=== PATIENT | female | born 1965 | race African-American/Black ===

== ENCOUNTER 2016-10-20 07:44 | Emergency (ER) | payer OTHER, BC ==
[2016-10-20 07:57] VITALS: BP 126/85; PULSE 72; TEMP 98.6; BMI 31.1
--- NOTE | 2016-10-20 08:46 | PDOC ---
History of Present Illness - General Chief Complaint: Pain, Acute Stated Complaint: LT KNEE PAIN Time Seen by Provider: 10/20/16 08:32 History Source: Patient Exam Limitations: No Limitations - History of Present Illness Initial Comments: 10/20/16 08:43 50 yr female states at work this morning a box fell off a pallet onto her left knee and thigh. Pt is ambulatory no acute distress, c/o left knee pain. Occurred: reports: this morning (630am) Severity: Yes: mild Lower Extremity Pain Location: left: knee Method of Injury: Yes: direct blow Modifying Factors: improves with: None Lower Ext. Injury Location - Specific Injury Location Knees: left normal inspection, left soft tissue tenderness Past History - Past Medical History Allergies/Adverse Reactions: Allergies Allergy/AdvReac Type Severity Reaction Status Date / Time No Known Allergies Allergy Verified 10/20/16 07:52 Other medical history: Denies - Surgical History Abdominal Surgery: Yes (Gastric Sleeve) - Immunization History Immunization Up to Date: Yes - Psycho/Social/Smoking Cessation Hx Anxiety: No Suicidal Ideation: No Smoking History: Never smoked Have you smoked in the past 12 months: No Information on smoking cessation initiated: No Hx Alcohol Use: No Drug/Substance Use Hx: No Substance Use Type: None Review of Systems - Review of Systems Able to Perform ROS?: Yes Is the patient limited Divehi proficient: No Constitutional: No: Symptoms Reported HEENTM: No: Symptoms Reported Respiratory: No: Symptoms reported Cardiac (ROS): No: Symptoms Reported ABD/GI: No: Symptoms Reported : No: Symptoms Reported Musculoskeletal: Yes: Symptoms Reported, See HPI *Physical Exam - Vital Signs Last Vital Signs Temp Pulse Resp BP Pulse Ox 98.6 F 72 16 126/85 100 10/20/16 07:53 10/20/16 07:53 10/20/16 07:53 10/20/16 07:53 10/20/16 07:53 - Physical Exam General Appearance: Yes: Nourished, Appropriately Dressed HEENT: positive: EOMI, MINA Musculoskeletal: positive: Normal Inspection Extremity: positive: Normal Capillary Refill, Normal Inspection, Normal Range of Motion, Tender (dostal femur at proximal patella, nv intact FROM ) Integumentary: positive: Normal Color, Dry, Warm Neurologic: positive: Fully Oriented, Alert, Normal Mood/Affect, Normal Response , Motor Strength 5/5 ED Treatment Course - RADIOLOGY Radiology Studies Ordered: Category Date Time Status KNEE 3 POS-LEFT [RAD] Stat Radiology 10/20/16 08:34 Ordered Medical Decision Making - Medical Decision Making 10/20/16 08:45 cc: left knee/thigh injury will xray to r/o fracture pt refused any pain meds 10/20/16 14:00 *DC/Admit/Observation/Transfer Diagnosis at time of Disposition: Contusion of leg, left Qualifiers: Encounter type: initial encounter Qualified Code(s): S80.12XA - Contusion of left lower leg, initial encounter - Discharge Dispostion Disposition: HOME Condition at time of disposition: Good - Referrals Referrals: Mateus Rojo [Primary Care Provider] - Christian Aguilar MD [Staff Physician] - - Patient Instructions Additional Instructions: apply ice every 2hrs for 20 minutes to the area of pain for the next 2 days take motrin 600mg every 6hrs as needed for any pain (over the counter motrin, advil or ibuprofen) follow with the orthopedist if symptoms worsen in a few days - Post Discharge Activity Work/School Note: Back to Work
== END 2016-10-20 09:37 | disposition home or self-care (01) ==
LOC: JERFT 07:44
DX: S70.12XA Contusion of left thigh, initial encounter (principal); S80.02XA Contusion of left knee, initial encounter; W20.8XXA Other cause of strike by thrown, projected or falling object, initial encounter; Y93.89 Activity, other specified; Y92.242 Post office as the place of occurrence of the external cause; Y99.0 Civilian activity done for income or pay
CPT/HCPCS: 73562-TC-LT; 99281-25

== ENCOUNTER 2021-05-31 10:11 | Emergency (ER) | payer BC ==
[2021-05-31 10:36] VITALS: BP 142/86; PULSE 70; TEMP 98.1; BMI 31.9
[2021-05-31] MEDS ORDERED: diphenhydrAMINE HCL 50 MG CAPSULE PO ONE (12:38)
[2021-05-31] MEDS ORDERED: DEXAMETHASONE SOD PHOSPHATE 10 MG/1 ML VIAL IM ONE (12:38)
[2021-05-31] MEDS ORDERED: diphenhydrAMINE HCL 25 MG CAPSULE (FP) PO ONE (13:38)
[2021-05-31] MEDS ORDERED: DEXAMETHASONE SOD PHOSPHATE 10 MG/1 ML VIAL ONE (13:38)
== END 2021-05-31 13:37 | disposition home or self-care (01) ==
LOC: JER 10:11
PROC: 3E0233Z Introduction of Anti-inflammatory into Muscle, Percutaneous Approach (ICD-10-PCS; principal; 2021-05-31)
DX: T78.3XXA Angioneurotic edema, initial encounter (principal); T78.40XA Allergy, unspecified, initial encounter
CPT/HCPCS: 96372; 99284-25